=== PATIENT | male | born 1965 | race Two or more races ===

== ENCOUNTER 2016-11-16 14:00 | Inpatient (IN) | payer MEDICAID ==
[~2016-11-16] VITALS: Ht 167.6 cm; Wt 83.1 kg
[~2016-11-16 14:00] MED LIST: CIP500T PO; HYDR-4663 PO; MET500T PO; METF-372
[2016-11-16 15:12] LABS: Basophils # (auto) 0 uL; Basophils % (auto) 0.2 % (0.0-2.0); CONDITION AutoValidated; DEFINITIVE SEE PRINTOUT; Eosinophils # (auto) 0 uL; Eosinophils % (auto) 0.1 % (0.0-7.0); Hematocrit 40.6 % (41.0-53.0); Lymphocytes # (auto) 1.7 uL; Mean Corpuscular Hemoglobin 23.6 pg (28.0-32.0); Mean Corpuscular Hgb Conc. 31.9 g/dL (32.0-36.0); Mean Corpuscular Volume 73.9 fL (80.0-100.0); Mean Platelet Volume 6.5 fL (7.4-10.4); Monocytes # (auto) 0.6 uL; Monocytes % (auto) 5.1 % (0.0-12.0); Neutrophils # (auto) 8.5 uL; Neutrophils % (auto) 78.6 % (37.0-80.0); Platelet Count (auto) 503 10^3/uL (140-450); White Blood Cell 10.8 10^3/uL (4.4-10.8)
[2016-11-16 15:25] LABS: Red Cell Distribution Width 20.3 % (11.6-16.0)
[2016-11-16 15:33] LABS: BUN/Creatinine Ratio 25.6; Bilirubin, Total 0.6 mg/dL (0.2-1.0); Calcium 8.4 mg/dL (8.5-10.1); Potassium 3.8 mmol/L (3.5-5.1); Total Protein 8.1 g/dL (6.4-8.2)
[2016-11-16 15:58] LABS: Anisocytosis Moderate; Ovalocytes FEW; Platelet Estimate Increased
[2016-11-17] MEDS ORDERED: ONDANSETRON HCL 4 MG/2 ML VIAL IV ONE (00:45)
[2016-11-17] MEDS ORDERED: SODIUM CHLORIDE 0.9% 1,000 ML IV ONE (00:45)
[2016-11-17] MEDS ORDERED: MORPHINE SULFATE 4 MG/ML SYRG IV ONE (00:45)
[2016-11-17] MEDS ORDERED: FAMOTIDINE (10MG/ML) 2ML VL IV ONE (00:45)
[2016-11-17 00:52] LABS: Urine RBC None Seen /hpf (0 - 3)
[2016-11-17 01:00] LABS: Urine Bilirubin Negative (Negative); Urine Blood Negative /uL (Negative); Urine Color Yellow (Yellow); Urine Nitrite Negative (Negative); Urine Urobilinogen Normal (Negative)
[2016-11-17 01:02] LABS: Urine Glucose 4+ mg/dL (Normal); Urine Ketone 4+ (Negative)
[2016-11-17 01:27] LABS: Amylase 51 U/L (25-115)
[2016-11-17] MEDS ORDERED: TEMAZEPAM 15 MG CAP PO PRN (09:30)
[2016-11-17] MEDS ORDERED: DEXTROSE (50%) 50ML SYRG IV PRN (09:30)
[2016-11-17] MEDS ORDERED: ACETAMINOPHEN 325 MG TAB PO PRN (09:30)
[2016-11-17] MEDS ORDERED: NITROGLYCERIN 0.4 MG SL TAB SL PRN (09:30)
[2016-11-17] MEDS ORDERED: ONDANSETRON HCL 4 MG/2 ML VIAL IV PRN (09:30)
[2016-11-17] MEDS ORDERED: DOCUSATE SOD 100 MG CAP PO PRN (09:30)
[2016-11-17] MEDS ORDERED: MORPHINE SULF INJ 2 MG/ML SYRINGE 1ML IV PRN ×2 (09:30)
[2016-11-17] MEDS ORDERED: HYDROcodone-ACET 5/325MG TAB PO PRN (09:30)
[2016-11-17] MEDS: PANTOPRAZOLE SODIUM 40 MG/10 ML VIAL IV SCH ×2 (09:44→22:06)
[2016-11-17] MEDS: GABAPENTIN 100 MG CAP PO SCH ×2 (09:44→22:06)
[2016-11-17] MEDS: LISINOPRIL 5 MG TAB PO SCH (09:45)
[2016-11-17] MEDS: MULTIPLE VITAMIN TAB PO SCH (09:46)
[2016-11-17] MEDS: SODIUM CHLORIDE 0.9% 1,000 ML IV SCH ×2 (09:48→09:54)
[2016-11-17] MEDS: INVOKANA 100MG PO SCH (09:54)
[2016-11-17 09:58] LABS: B-Type Natriuretic Peptide 19.3 pg/mL (0-100)
[2016-11-17] MEDS ORDERED: FAMOTIDINE (10MG/ML) 2ML VL IV SCH (10:00)
[2016-11-17 10:05] LABS: Temperature: 23.5 C (20.0-25.0)
[2016-11-17] MEDS ORDERED: IBUP600T27 PO (11:20)
[2016-11-17] MEDS ORDERED: GABA-494 PO (11:20)
[2016-11-17] MEDS ORDERED: METH-562 PO (11:20)
[2016-11-17] MEDS ORDERED: LISI2.5T47 PO (11:20)
[2016-11-17 11:28] VITALS: BP 135/74
[2016-11-17] MEDS: InsuLIN REG 1unit/0.01ml Soln (100units/ml) SC SCH ×3 (11:30→22:00)
[2016-11-17] MEDS: ACCU-CHEK COMFORT CURVE STRIP VI SCH ×3 (11:44→22:07)
[2016-11-17 12:02] LABS: Hematocrit 37.6 % (41.0-53.0); Hemoglobin 11.8 g/dL (13.5-17.5)
[2016-11-17] MEDS: METHOCARBAMOL 500 MG TAB PO SCH ×3 (12:49→22:07)
[2016-11-17] MEDS: METOCLOPRAMIDE HCL 10 MG TAB PO SCH ×3 (12:50→22:06)
[2016-11-17 13:00] VITALS: BP 115/83
[2016-11-17 17:00] VITALS: BP 127/53
[2016-11-17 20:47] LABS: Hemoglobin 11.6 g/dL (13.5-17.5)
[2016-11-17 22:00] VITALS: BP 104/57
[2016-11-18] VITALS (7 sets, daily range): BP systolic 100–157; BP diastolic 61–86
[2016-11-18] MEDS: SODIUM CHLORIDE 0.9% 1,000 ML IV SCH ×3 (01:15→19:09)
[2016-11-18] MEDS: METHOCARBAMOL 500 MG TAB PO SCH ×4 (06:29→22:24)
[2016-11-18] MEDS: METOCLOPRAMIDE HCL 10 MG TAB PO SCH ×4 (06:31→22:24)
[2016-11-18] MEDS: InsuLIN REG 1unit/0.01ml Soln (100units/ml) SC SCH ×4 (06:32→22:00)
[2016-11-18] MEDS: ACCU-CHEK COMFORT CURVE STRIP VI SCH ×4 (06:32→22:23)
[2016-11-18 06:55] LABS: Albumin 3.1 g/dL (3.4-5.0); BUN/Creatinine Ratio 25.5; Bilirubin, Total 0.7 mg/dL (0.2-1.0); Potassium 3.7 mmol/L (3.5-5.1); Total Protein 6.4 g/dL (6.4-8.2)
[2016-11-18 07:02] LABS: Basophils # (auto) 0 uL; Basophils % (auto) 0.5 % (0.0-2.0); CONDITION AutoValidated; DEFINITIVE SEE PRINTOUT; Eosinophils # (auto) 0.1 uL; Eosinophils % (auto) 0.7 % (0.0-7.0); Hematocrit 35.8 % (41.0-53.0); Hemoglobin 11.4 g/dL (13.5-17.5); Lymphocytes % (auto) 27.4 % (10.0-50.0); Mean Corpuscular Hgb Conc. 31.9 g/dL (32.0-36.0); Monocytes # (auto) 0.7 uL; Monocytes % (auto) 9.6 % (0.0-12.0); Neutrophils # (auto) 4.6 uL; Neutrophils % (auto) 61.8 % (37.0-80.0); Platelet Count (auto) 410 10^3/uL (140-450); White Blood Cell 7.5 10^3/uL (4.4-10.8)
[2016-11-18 07:37] LABS: Red Cell Distribution Width 20.7 % (11.6-16.0)
[2016-11-18] MEDS ORDERED: FLUMAZENIL 0.1 MG/ML INJ 10ML MDV IV ONE (08:06)
[2016-11-18] MEDS ORDERED: SODIUM CHLORIDE LOCK 10 ML ONE (08:06)
[2016-11-18] MEDS ORDERED: LIDOCAINE VISCOUS 2% 15ML UD ONE (08:06)
[2016-11-18] MEDS ORDERED: NALOXONE HCL 0.4 MG/ML VIAL ONE (08:06)
[2016-11-18] MEDS ORDERED: diphenhdrAMINE HCL 50 MG/1 ML VL ONE (08:07)
[2016-11-18 08:09] LABS: Partial Thromboplastin Time 27.5 sec (22.64-33.71)
[2016-11-18 08:10] LABS: INR 1.23 (0.9-1.15); Prothrombin Time 13.4 sec (9.37-12.3)
[2016-11-18 08:23] LABS: Platelet Estimate Adequate
[2016-11-18 08:25] LABS: Anisocytosis Slight; Hypochromia Slight; Ovalocytes FEW
[2016-11-18] MEDS: INVOKANA 100MG PO SCH (10:00)
[2016-11-18] MEDS: PANTOPRAZOLE SODIUM 40 MG/10 ML VIAL IV SCH ×2 (10:46→22:23)
[2016-11-18] MEDS: MULTIPLE VITAMIN TAB PO SCH (10:47)
[2016-11-18] MEDS: GABAPENTIN 100 MG CAP PO SCH ×2 (10:47→22:24)
[2016-11-18] MEDS: LISINOPRIL 5 MG TAB PO SCH (10:48)
[2016-11-18] MEDS: MIDAZOLAM HCL 5 MG/ML-1ML VIAL ONE ×3 (16:18→16:25)
[2016-11-18] MEDS: fentaNYL CITRATE 100 MCG/2 ML VL ONE ×2 (16:18→16:21)
[2016-11-18] MEDS: SUCRALFATE 1 GM/10 ML ORAL SUSP PO SCH ×2 (17:50→22:23)
[2016-11-18] MEDS: Boost Glucose Control 8 Ounces PO SCH (18:00)
[2016-11-19] MEDS: SODIUM CHLORIDE 0.9% 1,000 ML IV SCH ×2 (04:16→11:29)
[2016-11-19 05:00] VITALS: BP 118/74
[2016-11-19] MEDS: METHOCARBAMOL 500 MG TAB PO SCH ×2 (06:19→11:39)
[2016-11-19] MEDS: METOCLOPRAMIDE HCL 10 MG TAB PO SCH ×2 (06:33→11:40)
[2016-11-19] MEDS: ACCU-CHEK COMFORT CURVE STRIP VI SCH ×2 (06:33→11:30)
[2016-11-19] MEDS: SUCRALFATE 1 GM/10 ML ORAL SUSP PO SCH ×2 (06:33→11:39)
[2016-11-19] MEDS: InsuLIN REG 1unit/0.01ml Soln (100units/ml) SC SCH ×2 (06:33→11:30)
[2016-11-19 07:31] LABS: Basophils # (auto) 0 uL; Basophils % (auto) 0.7 % (0.0-2.0); CONDITION Y; DEFINITIVE SEE PRINTOUT; Eosinophils # (auto) 0.1 uL; Hematocrit 36.9 % (41.0-53.0); Hemoglobin 11.9 g/dL (13.5-17.5); Lymphocytes % (auto) 30.4 % (10.0-50.0); Mean Corpuscular Hgb Conc. 32.1 g/dL (32.0-36.0); Mean Corpuscular Volume 74.6 fL (80.0-100.0); Mean Platelet Volume 6.7 fL (7.4-10.4); Monocytes # (auto) 0.5 uL; Monocytes % (auto) 8.1 % (0.0-12.0); Neutrophils % (auto) 59.8 % (37.0-80.0); Platelet Count (auto) 471 10^3/uL (140-450); White Blood Cell 6.7 10^3/uL (4.4-10.8)
[2016-11-19 07:32] LABS: Red Cell Distribution Width 20.4 % (11.6-16.0)
[2016-11-19 07:46] LABS: Albumin 3.2 g/dL (3.4-5.0); Bilirubin, Total 0.5 mg/dL (0.2-1.0); Potassium 3.3 mmol/L (3.5-5.1); Total Protein 6.6 g/dL (6.4-8.2)
[2016-11-19 08:00] VITALS: BP 106/68
[2016-11-19] MEDS: Boost Glucose Control 8 Ounces PO SCH ×2 (08:00→12:01)
[2016-11-19 08:07] LABS: Platelet Estimate Adequate
[2016-11-19 08:08] LABS: Anisocytosis Slight; Hypochromia Slight; Ovalocytes FEW
[2016-11-19 08:12] LABS: Burr Cells FEW
[2016-11-19 09:00] VITALS: BP 124/78
[2016-11-19] MEDS ORDERED: POTASSIUM CHL 10 Meq TABLET PO ONE ×2 (09:15)
[2016-11-19] MEDS: INVOKANA 100MG PO SCH (10:00)
[2016-11-19 10:29] VITALS: BP 106/68
[2016-11-19] MEDS: LISINOPRIL 5 MG TAB PO SCH (10:53)
[2016-11-19] MEDS: GABAPENTIN 100 MG CAP PO SCH (10:53)
[2016-11-19] MEDS: PANTOPRAZOLE SODIUM 40 MG/10 ML VIAL IV SCH (10:54)
[2016-11-19] MEDS: MULTIPLE VITAMIN TAB PO SCH (10:55)
[2016-11-19 13:00] VITALS: BP 125/79
== END 2016-11-19 13:30 | disposition home or self-care (01) | DRG 253 ==
LOC: ER 14:10 → TELE 14:11 → TELE-E-ADS 11-17 11:01 → TELE-CENTR 11-17 11:52
PROVIDERS: ADMIT Internal Medicine; ATTEND Internal Medicine
PROC: 0DB68ZX Excision of Stomach, Via Natural or Artificial Opening Endoscopic, Diagnostic (ICD-10-PCS; 2016-11-18)
PROC: 0DB58ZX Excision of Esophagus, Via Natural or Artificial Opening Endoscopic, Diagnostic (ICD-10-PCS; principal; 2016-11-18 16:21)
DX: K92.2 Gastrointestinal hemorrhage, unspecified (principal); E87.0 Hyperosmolality and hypernatremia; E11.21 Type 2 diabetes mellitus with diabetic nephropathy; E44.0 Moderate protein-calorie malnutrition; E11.65 Type 2 diabetes mellitus with hyperglycemia; E87.1 Hypo-osmolality and hyponatremia; K22.70 Barrett's esophagus without dysplasia; E86.0 Dehydration; E83.51 Hypocalcemia; K76.0 Fatty (change of) liver, not elsewhere classified; J45.909 Unspecified asthma, uncomplicated; E78.5 Hyperlipidemia, unspecified; D63.8 Anemia in other chronic diseases classified elsewhere; D75.89 Other specified diseases of blood and blood-forming organs; E87.6 Hypokalemia; I10 Essential (primary) hypertension; K21.0 Gastro-esophageal reflux disease with esophagitis; K29.00 Acute gastritis without bleeding; K57.90 Diverticulosis of intestine, part unspecified, without perforation or abscess without bleeding; Z83.3 Family history of diabetes mellitus; Z86.010 Personal history of colon polyps; K44.9 Diaphragmatic hernia without obstruction or gangrene; Z71.89 Other specified counseling; R91.1 Solitary pulmonary nodule; Z88.1 Allergy status to other antibiotic agents; Z88.8 Allergy status to other drugs, medicaments and biological substances; Z68.29 Body mass index [BMI] 29.0-29.9, adult
CPT/HCPCS: 36415; 43239; 71010; 71250; 74176; 80053; 80307; 81001; 82150; 82962; 83036; 83540; 83690; 83880; 84443; 84484; 85014; 85018; 85025; 85610; 85730; 86677; 87081; 87493; 93005; 96361; 96374; 96375; C9113; J2250; J2405; J3490

== ENCOUNTER 2019-11-01 19:31 | Inpatient (IN) | payer MEDICAID ==
[~2019-11-01] VITALS: Ht 167.6 cm; Wt 79.2 kg
[~2019-11-01 19:31] MED LIST changes: -CIP500T PO; +GABA100C9 PO; -HYDR-4663 PO; +HYDR-4833 PO; +LISI2.5T47 PO; -MET500T PO; +METH-562 PO
[2019-11-01] MEDS ORDERED: SODIUM CHLORIDE 0.9% 1,000 ML IVB ONE (19:59)
[2019-11-01] MEDS ORDERED: ONDANSETRON HCL 4 MG/2 ML VIAL IV ONE (20:00)
[2019-11-01 20:43] LABS: Basophils # (auto) 0 10 ^3/uL (0-0.2); Basophils % (auto) 0.4 % (0.0-2.0); Eosinophils # (auto) 0.1 10 ^3/uL (0-0.8); Eosinophils % (auto) 1.5 % (0.0-7.0); Hematocrit 44.6 % (41.0-53.0); Hemoglobin 14.8 g/dL (13.5-17.5); Lymphocytes # (auto) 0.9 10 ^3/uL (0.4-5.4); Lymphocytes % (auto) 11.4 % (10.0-50.0); Mean Corpuscular Hemoglobin 29.5 pg (28.0-32.0); Mean Corpuscular Hgb Conc. 33.1 g/dL (32.0-36.0); Mean Corpuscular Volume 89.3 fL (80.0-100.0); Monocytes # (auto) 0.6 10 ^3/uL (0-1.3); Monocytes % (auto) 7.6 % (0.0-12.0); Neutrophils # (auto) 6.2 10 ^3/uL (1.6-8.6); Neutrophils % (auto) 79.1 % (37.0-80.0); Platelet Count (auto) 356 10^3/uL (140-450); Red Cell Distribution Width 15.3 % (11.8-14.3); White Blood Cell 7.8 10^3/uL (4.4-10.8)
[2019-11-01 20:49] LABS: INR 1.35 (0.9-1.15); Partial Thromboplastin Time 28.7 sec (23.64-32.05)
[2019-11-01 20:51] LABS: Albumin 3.4 g/dL (3.4-5.0); Amylase 32 U/L (25-115); Anion Gap 11 (5-15); Blood Urea Nitrogen 13 mg/dL (7-18); Calcium 8.7 mg/dL (8.5-10.1); Carbon Dioxide 23 mmol/L (21-32); Chloride 100 mmol/L (98-107); Glucose 135 mg/dL (74-106); Lipase 50 U/L (73-393); Magnesium 2.1 mg/dL (1.6-2.6); Potassium 3.8 mmol/L (3.5-5.1); Sodium 134 mmol/L (136-145)
[2019-11-01 21:01] LABS: Alanine Aminotransferase 193 U/L (16-61); Alkaline Phosphatase 310 U/L (45-117); Aspartate Aminotransferase 130 U/L (15-37); BUN/Creatinine Ratio 27.1; Bilirubin, Total 0.6 mg/dL (0.2-1.0); GFR African American 234 mL/min; GFR Non-African American 193 mL/min; Total Protein 7.6 g/dL (6.4-8.2)
[2019-11-01] MEDS ORDERED: IOHEXOL 300 MG/ML 100ML BOTTLE IJ ONE (21:08)
[2019-11-01 21:12] LABS: Urine Bacteria NONE SEEN /hpf (None Seen); Urine Blood Negative /uL (Negative); Urine Specific Gravity 1.032 (1.001-1.035); Urine WBC 1 /hpf (0 - 3)
[2019-11-02] MEDS ORDERED: MORPHINE SULFATE 4 MG/ML SYR/VIAL IV ONE
[2019-11-02] MEDS ORDERED: HYDROmorphone HCL 2 MG/ML VL IV ONE (01:15)
[2019-11-02] MEDS ORDERED: SODIUM CHLORIDE 0.9% 1,000 ML IV SCH (01:31)
[2019-11-02] MEDS ORDERED: DEXTROSE (50%) 50ML SYRG IV PRN (01:45)
[2019-11-02] MEDS ORDERED: ONDANSETRON HCL 4 MG/2 ML VIAL IV PRN (01:45)
[2019-11-02] MEDS ORDERED: ALBUTEROL SULF 2.5 MG/0.5ML(0.5%) NEB SOLN NEB PRN (01:45)
[2019-11-02] MEDS ORDERED: MORPHINE SULF INJ 2 MG/ML SYRINGE 1ML IV PRN (01:45)
[2019-11-02] MEDS ORDERED: ACETAMINOPHEN 325 MG TAB PO PRN (01:45)
[2019-11-02] MEDS ORDERED: IPRATROPIUM BROM 0.5 MG/2.5ML INH SOL NEB PRN (01:45)
[2019-11-02] MEDS ORDERED: DOCUSATE SOD 100 MG CAP PO PRN (01:45)
[2019-11-02] MEDS ORDERED: HYDROcodone-ACET 5/325MG TAB PO PRN ×2 (01:45)
[2019-11-02] MEDS: InsuLIN REG 1unit/0.01ml Soln (100units/ml) SC SCH ×5 (04:00→19:43)
[2019-11-02] MEDS: ACCU-CHEK COMFORT CURVE STRIP VI SCH ×5 (04:07→19:43)
[2019-11-02 06:04] LABS: Basophils # (auto) 0 10 ^3/uL (0-0.2); Basophils % (auto) 0.6 % (0.0-2.0); Eosinophils # (auto) 0 10 ^3/uL (0-0.8); Eosinophils % (auto) 0.4 % (0.0-7.0); Hematocrit 39.9 % (41.0-53.0); Hemoglobin 13.6 g/dL (13.5-17.5); Lymphocytes # (auto) 0.6 10 ^3/uL (0.4-5.4); Lymphocytes % (auto) 11.6 % (10.0-50.0); Mean Corpuscular Hemoglobin 30.5 pg (28.0-32.0); Mean Corpuscular Hgb Conc. 34.2 g/dL (32.0-36.0); Mean Corpuscular Volume 89.1 fL (80.0-100.0); Monocytes # (auto) 0.4 10 ^3/uL (0-1.3); Monocytes % (auto) 8.6 % (0.0-12.0); Neutrophils # (auto) 4.1 10 ^3/uL (1.6-8.6); Neutrophils % (auto) 78.8 % (37.0-80.0); Platelet Count (auto) 291 10^3/uL (140-450); Red Blood Cells 4.48 10^6/uL (4.5-5.90); Red Cell Distribution Width 15.1 % (11.8-14.3); White Blood Cell 5.2 10^3/uL (4.4-10.8)
[2019-11-02 06:20] LABS: Calcium 8.1 mg/dL (8.5-10.1); Potassium 3.7 mmol/L (3.5-5.1)
[2019-11-02 06:22] LABS: BUN/Creatinine Ratio 34.1
[2019-11-02] MEDS: LISINOPRIL 5 MG TAB PO SCH (10:09)
[2019-11-02] MEDS: METHOCARBAMOL 500 MG TAB PO SCH (10:09)
[2019-11-02] MEDS: GABAPENTIN 100 MG CAP PO SCH ×2 (10:10→21:33)
[2019-11-02] MEDS ORDERED: HYDROmorphone HCL 2 MG/ML VL IV PRN (13:15)
[2019-11-02] MEDS ORDERED: D5W/SOD CHL 0.45% 1,000 ML IV SCH (13:30)
[2019-11-02] MEDS: HYDROmorphone HCL 2 MG/ML VL IV PRN ×2 (13:49→17:59)
[2019-11-02] MEDS: D5W/SOD CHL 0.45% 1,000 ML IV SCH ×2 (13:50→21:36)
[2019-11-02] MEDS: CEFTRIAXONE SODIUM 2 GM in D5W 5% 50 ML IV SCH (14:25)
[2019-11-02 15:35] VITALS: BP 124/77
[2019-11-02 17:40] VITALS: BP 123/80
[2019-11-02] MEDS: ATORVASTATIN 20 MG TAB PO SCH (17:59)
[2019-11-02 18:00] VITALS: BP 123/80
--- NOTE | 2019-11-02 18:00 | NUR ---
Telemetry admit from ER LARISSA LUBIN admitted to Telemetry unit after verbal received from SHANNAN Cunha, ER. Patient oriented to Aggie Portillo, primary RN, unit, room, bed, and unit policies regarding patient care and visiting hours. Patient is awake, alert and oriented X4. No signs or symptoms of SOB, discomfort but does complain of right sided abdominal pain, 5/10, will medicate with prescribed pain medication. IV to right forearm, 20 gauge, patent and infusing D5 0.45% NS @ 120 ml/hr. Patient placed on bedside oxygen, weighed by bedscale and encouraged to call if they need something. All questions and concerns addressed, patient verbalized understanding. Bed locked, in lowest position, call light within reach, will continue to monitor Q 1 hour and PRN.
--- NOTE | 2019-11-02 18:40 | NUR ---
PT IS SLEEPING WITH NO ACUTE RESP DISTRESS NOTED. PRN TX IS NOT INDICATED. WILL CONTINUE TO MONITOR. HR 87 RR 16 97% ON 2LNC.
--- NOTE | 2019-11-02 19:13 | NUR ---
Care endorsed to SHANNAN Dozier, night nurse.
--- NOTE | 2019-11-02 19:43 | NUR ---
RECEIVED PATIENT FROM DAY SHIFT RN. PATIENT RESTING IN BED. NO S/S OF DISTRESS NOTED. C/O ABD PAIN @ 5/10 AFTER PAIN MEDICATION GIVEN EARLIER. REINFORCED THE SCHEDULE OF PAIN MANAGEMENT. WILL COME BACK FOR PAIN MEDICATION WHEN THE TIME IS DUE AND PER PATIENT REQUESTS. AND CONTINUE NPO. PATIENT VERBALIZED UNDERSTANDING. ACCU-CHECK, BS 101. NO COVERAGE. CONTINUE TO MONITOR.
[2019-11-02] MEDS: metroNIDAZOLE 500MG/100ML 100 ML IV SCH (21:34)
[2019-11-02 22:00] VITALS: BP 121/76
[2019-11-03] MEDS: InsuLIN REG 1unit/0.01ml Soln (100units/ml) SC SCH ×6 (01:19→20:08)
[2019-11-03] MEDS: ACCU-CHEK COMFORT CURVE STRIP VI SCH ×6 (02:19→20:07)
--- NOTE | 2019-11-03 03:56 | NUR ---
ACCU-CHECK, BS 129. NO COVERAGE. CONTINUE TO MONITOR.
[2019-11-03] MEDS: metroNIDAZOLE 500MG/100ML 100 ML IV SCH ×3 (05:44→21:50)
[2019-11-03] MEDS: D5W/SOD CHL 0.45% 1,000 ML IV SCH ×3 (05:45→21:15)
[2019-11-03 06:00] VITALS: BP 114/71
[2019-11-03 06:44] LABS: Basophils # (auto) 0 10 ^3/uL (0-0.2); Basophils % (auto) 0.4 % (0.0-2.0); Eosinophils # (auto) 0 10 ^3/uL (0-0.8); Eosinophils % (auto) 0.7 % (0.0-7.0); Hematocrit 46.1 % (41.0-53.0); Hemoglobin 15.5 g/dL (13.5-17.5); Lymphocytes # (auto) 0.5 10 ^3/uL (0.4-5.4); Lymphocytes % (auto) 12.7 % (10.0-50.0); Mean Corpuscular Hemoglobin 30.2 pg (28.0-32.0); Mean Corpuscular Hgb Conc. 33.6 g/dL (32.0-36.0); Monocytes # (auto) 0.4 10 ^3/uL (0-1.3); Monocytes % (auto) 11.4 % (0.0-12.0); Neutrophils # (auto) 2.9 10 ^3/uL (1.6-8.6); Neutrophils % (auto) 74.8 % (37.0-80.0); Nucleated Red Blood Cells % 0.1 %; Platelet Count (auto) 298 10^3/uL (140-450); Red Blood Cells 5.12 10^6/uL (4.5-5.90); Red Cell Distribution Width 15.2 % (11.8-14.3); White Blood Cell 3.8 10^3/uL (4.4-10.8)
[2019-11-03 07:07] LABS: Albumin 3.2 g/dL (3.4-5.0); Calcium 8.2 mg/dL (8.5-10.1); Magnesium 2.1 mg/dL (1.6-2.6); Potassium 3.4 mmol/L (3.5-5.1)
[2019-11-03 07:10] LABS: BUN/Creatinine Ratio 12.7; Bilirubin, Total 0.4 mg/dL (0.2-1.0); Total Protein 7.5 g/dL (6.4-8.2)
[2019-11-03 08:00] VITALS: BP 124/78
--- NOTE | 2019-11-03 08:00 | NUR ---
Opening Shift Note Assumed care of patient, awake and alert. No S/S of distress/SOB or pain. Bed is low, locked with 2x side rails up. Call light is within reach. Instructed on POC and to call for assist PRN, will continue to monitor for changes Q1hr and PRN.
--- NOTE | 2019-11-03 08:06 | NUR ---
Respiratory note: PT AWAKE, AND ALERT. NO RESPIRATORY DISTRESS NOTED AT THIS TIME. SPO2 99% ON 2L NC, HR 83, RR 18, BS CLEAR/DIMINISHED BILATERALLY. PRN MEDNEB TX NOT INDICATED AT THIS TIME. PT INFORMED TO PUSH CALL BUTTON IF INCREASED WOB, SOB, OR WHEEZING OCCURS.
[2019-11-03] MEDS: METHOCARBAMOL 500 MG TAB PO SCH (09:17)
[2019-11-03] MEDS: GABAPENTIN 100 MG CAP PO SCH ×2 (09:17→21:50)
[2019-11-03] MEDS: LISINOPRIL 5 MG TAB PO SCH (09:18)
[2019-11-03] MEDS: HYDROmorphone HCL 2 MG/ML VL IV PRN ×3 (09:19→20:07)
[2019-11-03] MEDS: CEFTRIAXONE SODIUM 2 GM in D5W 5% 50 ML IV SCH (09:35)
[2019-11-03 12:00] VITALS: BP 112/75
--- NOTE | 2019-11-03 13:39 | NUR ---
Pre-op EKG EKG done on 11/01/19 and filed in chart for reference. Chest xray has been completed by radiology. Please see imaging. Will continue to monitor.
[2019-11-03] MEDS ORDERED: IOHEXOL 300 MG/ML 100ML BOTTLE IJ ONE (14:13)
--- NOTE | 2019-11-03 14:15 | NUR ---
Patient off unit Patient taken to pre-op for ERCP. Consents signed. IV antibiotics infusing at this time. No distress noted upon departure.
[2019-11-03] MEDS ORDERED: LIDOCAINE 1% (LOCAL ANESTH.) PF 5ml SDV ONE (14:47)
[2019-11-03] MEDS ORDERED: MIDAZOLAM HCL 1MG/1ML-2 ML VIAL ONE ×2 (14:48→14:59)
[2019-11-03] MEDS ORDERED: diphenhdrAMINE HCL 50 MG/1 ML VL ONE (14:49)
[2019-11-03] MEDS ORDERED: GLYCOPYRROLATE 0.2 MG/ML 1ML VIAL ONE (14:49)
[2019-11-03] MEDS ORDERED: METOCLOPRAMIDE HCL 5MG/ml INJ 2ml VIAL ONE (14:49)
[2019-11-03] MEDS ORDERED: KETAMINE HCL 10 ML ONE (14:51)
[2019-11-03] MEDS ORDERED: PROPOFOL 10 MG/ML 20 ML IV ONE (14:56)
[2019-11-03] MEDS ORDERED: ONDANSETRON HCL 4 MG/2 ML VIAL IV PRN (15:15)
[2019-11-03] MEDS ORDERED: HYDROmorphone HCL 2 MG/ML VL IV PRN ×2 (15:15)
[2019-11-03] MEDS ORDERED: NALOXONE HCL 0.4 MG/ML VIAL IV PRN (15:15)
[2019-11-03] MEDS ORDERED: ACCU-CHEK COMFORT CURVE STRIP VI ONE (15:15)
--- NOTE | 2019-11-03 16:05 | NUR ---
Patient back in room S/p ERCP. Respirations even and unlabored. Bed is low, locked with 2x record systems analyst rails up. Call light is within reach. Will continue to monitor.
[2019-11-03 16:53] VITALS: BP 115/70
[2019-11-03] MEDS: ATORVASTATIN 20 MG TAB PO SCH (18:09)
--- NOTE | 2019-11-03 19:10 | NUR ---
OPENING SHIFT NOTE: ASSUMED CARE OF PATIENT. PATIENT IS AWAKE, ALERT AND ORIENTED X 4. NO S/S OF SOB OR DISTRESS, RESPIRATIONS EVEN AND UNLABORED. BED IS IN LOWEST LOCKED POSITION WITH TWO SIDE RAILS RAISED AND CALL GUZMAN WITHIN REACH. INSTRUCTED ON POC AND ENCOURAGED PT TO CALL FOR ASSISTANCE, ALL QUESTIONS AND CONCERNS ADDRESSED, PATIENT VERBALIZES UNDERSTANDING. WILL CONTINUE TO MONITOR Q1 HR AND PRN.
[2019-11-03 20:00] VITALS: BP 94/64
--- NOTE | 2019-11-03 20:41 | NUR ---
Respiratory note: PT AWAKE, AND ALERT. NO RESPIRATORY DISTRESS NOTED AT THIS TIME. SPO2 98% ON 3L NC, HR 85, RR 16, BS CLEAR/DIMINISHED BILATERALLY. PRN MEDNEB TX NOT INDICATED AT THIS TIME. PT INFORMED TO PUSH CALL BUTTON IF INCREASED WOB, SOB, OR WHEEZING OCCURS.
[2019-11-03 21:39] VITALS: BP 94/61
[2019-11-04] MEDS: HYDROmorphone HCL 2 MG/ML VL IV PRN ×3 (03:16→13:44)
[2019-11-04] MEDS: ACCU-CHEK COMFORT CURVE STRIP VI SCH ×3 (03:38→09:05)
[2019-11-04] MEDS: InsuLIN REG 1unit/0.01ml Soln (100units/ml) SC SCH ×3 (03:39→09:04)
[2019-11-04 05:00] VITALS: BP 109/69
[2019-11-04 05:59] LABS: Basophils # (auto) 0 10 ^3/uL (0-0.2); Basophils % (auto) 0.6 % (0.0-2.0); Eosinophils # (auto) 0.1 10 ^3/uL (0-0.8); Eosinophils % (auto) 2.1 % (0.0-7.0); Hematocrit 40.7 % (41.0-53.0); Hemoglobin 14.2 g/dL (13.5-17.5); Lymphocytes # (auto) 0.9 10 ^3/uL (0.4-5.4); Lymphocytes % (auto) 19.2 % (10.0-50.0); Mean Corpuscular Hemoglobin 31.3 pg (28.0-32.0); Mean Corpuscular Volume 89.4 fL (80.0-100.0); Monocytes # (auto) 0.7 10 ^3/uL (0-1.3); Monocytes % (auto) 13.8 % (0.0-12.0); Neutrophils # (auto) 3.1 10 ^3/uL (1.6-8.6); Neutrophils % (auto) 64.3 % (37.0-80.0); Nucleated Red Blood Cells % 0.1 %; Platelet Count (auto) 297 10^3/uL (140-450); Red Blood Cells 4.55 10^6/uL (4.5-5.90); Red Cell Distribution Width 15.3 % (11.8-14.3); White Blood Cell 4.8 10^3/uL (4.4-10.8)
[2019-11-04 06:19] LABS: Potassium 3.6 mmol/L (3.5-5.1)
[2019-11-04] MEDS: metroNIDAZOLE 500MG/100ML 100 ML IV SCH ×2 (06:23→13:44)
[2019-11-04] MEDS: D5W/SOD CHL 0.45% 1,000 ML IV SCH ×2 (06:23→13:15)
[2019-11-04 06:34] LABS: Albumin 2.8 g/dL (3.4-5.0); BUN/Creatinine Ratio 13.5; Bilirubin, Total 0.2 mg/dL (0.2-1.0); Calcium 8.1 mg/dL (8.5-10.1); Total Protein 6.6 g/dL (6.4-8.2)
[2019-11-04] MEDS: GABAPENTIN 100 MG CAP PO SCH (08:38)
[2019-11-04] MEDS: METHOCARBAMOL 500 MG TAB PO SCH (08:38)
[2019-11-04] MEDS: LISINOPRIL 5 MG TAB PO SCH (08:40)
[2019-11-04] MEDS: CEFTRIAXONE SODIUM 2 GM in D5W 5% 50 ML IV SCH (08:46)
[2019-11-04 09:00] VITALS: BP 112/71
--- NOTE | 2019-11-04 09:39 | NUR ---
I faxed higher level of care order to [facility], [facility], [facility] and [facility].
--- NOTE | 2019-11-04 11:06 | NUR ---
[id number] contacted [facility] director of casework services at [phone] spoke with Nadiya, requesting authorization for transportation and transfer to higher level care facility (pt requiring endoscopic ultrasound and possible repeat ERCP). Nadiya provided [id number] for transportation and authorization [id number] for facility. Addendum: 11/04/19 at 1130 by Juana Ramsey [facility] 1106 11/04/19 contacted [facility] director of casework services at [phone] spoke with Nadiya, requesting authorization for transportation and transfer to higher level care facility (pt requiring endoscopic ultrasound and possible repeat ERCP). Nadiya provided [id number] for transportation and authorizatin [id number] for facility.
--- NOTE | 2019-11-04 11:52 | NUR ---
1152 11/04/19 Contacted [facility] at [phone] spoke with corporate fitness program coordinator (Glenn) who confirmed receipt of all faxed documentation. [facility] stated they are working on this request. I contacted [facility] at [phone] spoke with nursing cloth winding supervisor who confirmed receipt of all faxed documentation and case is pending transfer nurse review. Also contacted [facility] at [phone] spoke with Cheryl who confirmed receipt of all faxed documentation and stated transfer pending review.
[2019-11-04 13:00] VITALS: BP 110/73
--- NOTE | 2019-11-04 13:45 | NUR ---
1346 11/04/19 Contacted by performance improvement coordinator Luis Alfredo)at [facility] who stated their facility did not perform endoscopic ultrasound and recommend [facility]. Addendum: 11/04/19 at 1350 by Juana Ramsey RN CM Was also contacted by transfer nurse at [facility] who stated the facility did not perform endoscopic ultrasound.
[2019-11-04 15:48] VITALS: BP 110/73
--- NOTE | 2019-11-04 15:50 | NUR ---
Report Called [facility] and gave report to SHANNAN Murphy. All questions answered.
--- NOTE | 2019-11-04 15:55 | NUR ---
Family Update Spoke with Radha () and updated on POC. Advised her that patient is going to be picked up at approximately 1630 and is going to [facility]. All questions answered.
--- NOTE | 2019-11-04 16:06 | NUR ---
1600 11/04/19 Contacted by lean manufacturing coordinator Varghese at [facility], patient was accepted for higher level of care, accepting physician Dr Irais Stubbs bed [id number]. [facility] contacted for transport, scheduled for 1630, nurse caring for patient on unit provided with all updates.
--- NOTE | 2019-11-04 16:51 | NUR ---
[facility] At nurses station to transport patient to [facility].
--- NOTE | 2019-11-04 16:52 | NUR ---
Pt being transferred/discharged. Order obtained for transfer of LARISSA LUBIN to [facility]. Report called/given to SHANNAN Murphy. Report given to EMS transport team. Medication reconciliation form completed and copy given to patient. Transported via gurney along with copied chart and imaging films/disk and all personal belongings. No distress noted on time of departure. Family notified of destination and room number, verbalized understanding.
[2019-11-04] MEDS ORDERED: ACCU-CHEK COMFORT CURVE STRIP VI SCH (17:00)
[2019-11-04] MEDS ORDERED: InsuLIN REG 1unit/0.01ml Soln (100units/ml) SC SCH (17:00)
== END 2019-11-04 16:55 | disposition short-term general hospital (02) ==
LOC: ER 19:31 → OVERFLOW 19:32 → CENTRAL 11-02 17:37
PROVIDERS: ADMIT Hospitalist; ATTEND Internal Medicine
PROC: 0FB98ZX Excision of Common Bile Duct, Via Natural or Artificial Opening Endoscopic, Diagnostic (ICD-10-PCS; principal; 2019-11-03 14:46)
DX: K80.51 Calculus of bile duct without cholangitis or cholecystitis with obstruction (principal); K85.90 Acute pancreatitis without necrosis or infection, unspecified; C78.4 Secondary malignant neoplasm of small intestine; K80.21 Calculus of gallbladder without cholecystitis with obstruction; J45.909 Unspecified asthma, uncomplicated; I10 Essential (primary) hypertension; E78.5 Hyperlipidemia, unspecified; E11.9 Type 2 diabetes mellitus without complications; Z79.899 Other long term (current) drug therapy; Z79.84 Long term (current) use of oral hypoglycemic drugs; Z83.3 Family history of diabetes mellitus
CPT/HCPCS: 36415; 71045; 74018; 74177; 74181; 76000; 76705; 80048; 80053; 80320; 81001; 82150; 82962; 83036; 83605; 83690; 83735; 84484; 85025; 85610; 85730; 87040; 87086; 93005; 96361; 96374; 96375; G0378; J0696; J1815; J2250; J2405; J2704; J3490; J7060

== ENCOUNTER 2020-09-23 01:16 | Emergency (ER) | payer MEDICAID ==
[~2020-09-23] VITALS: Ht 175.3 cm; Wt 79.4 kg
[2020-09-23 02:26] LABS: Basophils # (auto) 0 10 ^3/uL (0-0.2); Basophils % (auto) 0.3 % (0.0-2.0); Eosinophils # (auto) 0.1 10 ^3/uL (0-0.8); Eosinophils % (auto) 1.4 % (0.0-7.0); Hematocrit 38.5 % (41.0-53.0); Hemoglobin 13.2 g/dL (13.5-17.5); Lymphocytes # (auto) 0.9 10 ^3/uL (0.4-5.4); Lymphocytes % (auto) 18.1 % (10.0-50.0); Mean Corpuscular Hemoglobin 32.1 pg (28.0-32.0); Mean Corpuscular Hgb Conc. 34.4 g/dL (32.0-36.0); Mean Corpuscular Volume 93.2 fL (80.0-100.0); Monocytes # (auto) 0.4 10 ^3/uL (0-1.3); Monocytes % (auto) 8.2 % (0.0-12.0); Neutrophils # (auto) 3.7 10 ^3/uL (1.6-8.6); Platelet Count (auto) 315 10^3/uL (140-450); Red Blood Cells 4.13 10^6/uL (4.5-5.90); Red Cell Distribution Width 15.8 % (11.8-14.3); White Blood Cell 5.1 10^3/uL (4.4-10.8)
[2020-09-23] MEDS ORDERED: MORPHINE SULFATE 10 MG/ML INJ 1ML SDV IV ONE (02:30)
[2020-09-23] MEDS ORDERED: ONDANSETRON HCL 4 MG/2 ML VIAL IV ONE (02:30)
[2020-09-23] MEDS ORDERED: SODIUM CHLORIDE 0.9% 1,000 ML IVB ONE (02:30)
[2020-09-23 02:44] LABS: INR 1.27 (0.9-1.15); Partial Thromboplastin Time 25.1 sec (23.0-31.2)
[2020-09-23 02:45] LABS: Chloride 103 mmol/L (98-107); Potassium 3.9 mmol/L (3.5-5.1); Sodium 134 mmol/L (136-145)
[2020-09-23] MEDS ORDERED: HYDROmorphone HCL 2 MG/ML VL IV ONE (02:45)
[2020-09-23 02:50] LABS: Alanine Aminotransferase 53 U/L (16-61); Albumin 3.3 g/dL (3.4-5.0); Amylase 33 U/L (25-115); Anion Gap 8 (5-15); Aspartate Aminotransferase 40 U/L (15-37); BUN/Creatinine Ratio 42.9; Blood Urea Nitrogen 18 mg/dL (7-18); Calcium 8.4 mg/dL (8.5-10.1); Carbon Dioxide 23 mmol/L (21-32); GFR African American 272 mL/min; GFR Non-African American 224 mL/min; Glucose 121 mg/dL (74-106); Lipase 27 U/L (73-393)
[2020-09-23 03:32] LABS: Alkaline Phosphatase 123 U/L (45-117); Bilirubin, Total 0.4 mg/dL (0.2-1.0); Total Protein 7.1 g/dL (6.4-8.2)
[2020-09-23 05:56] VITALS: BP 120/78
[2020-09-23 06:04] LABS: Urine Bacteria NONE SEEN /hpf (None Seen); Urine Blood Negative /uL (Negative); Urine Specific Gravity 1.026 (1.001-1.035); Urine WBC 5 /hpf (0 - 3)
[2020-09-23] MEDS ORDERED: MORPHINE SULFATE 4 MG/ML SYR/VIAL IV ONE (06:15)
== END 2020-09-23 07:12 | disposition home or self-care (01) ==
LOC: EDBD 01:16 → ER 01:16
DX: K52.9 Noninfective gastroenteritis and colitis, unspecified (principal); C80.1 Malignant (primary) neoplasm, unspecified; C78.89 Secondary malignant neoplasm of other digestive organs; J45.909 Unspecified asthma, uncomplicated; E11.9 Type 2 diabetes mellitus without complications; E78.5 Hyperlipidemia, unspecified; I10 Essential (primary) hypertension
CPT/HCPCS: 36415; 71045; 74176; 80053; 81001; 82150; 83690; 83735; 84484; 85025; 85610; 85730; 93005; 96361; 96374; 96375; 99285; J1170; J2270; J2405; J7030